=== PATIENT | female | born 1970 | race Caucasian/White ===

== ENCOUNTER → 2019-09-24 | Emergency (ER) | payer OTHER ==
[~2019-09-24] VITALS: Ht 149.9 cm; Wt 94.8 kg
[~2019-09-24] MED LIST: SODIUM CHLORIDE 0.9% 1000ML 1,000 ML IV STA
[2019-09-24 00:57] LABS: BASOPHILS # (AUTO) 0.1 (0.0-0.1); BASOPHILS % 0.6 % (0.0-1.0); EOSINOPHILS # (AUTO) 0.3 (0.0-0.4); LYMPHOCYTES # (AUTO) 2.9 (1.0-3.2); LYMPHOCYTES % 21.3 % (18.0-39.1); MEAN CORPUSCULAR HEMOGLOBIN 27.3 pg (28-32); MEAN CORPUSCULAR HGB CONC 31.8 g/dL (31-35); MEAN CORPUSCULAR VOLUME 85.9 fL (81-99); MONOCYTES % 7.4 % (4.4-11.3); NEUTROPHILS # (AUTO) 9.3 (2.1-6.9); NEUTROPHILS % 68.3 % (38.7-80.0); PLATELET COUNT 200 x10e3/uL (140-360); RED BLOOD COUNT 5.12 x10e6/uL (3.6-5.1); RED CELL DISTRIBUTION WIDTH 16.7 % (11.7-14.4)
--- NOTE | 2019-09-24 01:03 | Emergency Department Note ---
History of Present Illnes History of Present Illness Chief Complaint: General Medicine Complaints History of Present Illness This is a 48 year old female arrives to the ED with complaints of vaginal bleeding, patient states she was told she has perimenopause and gets Deppo shots. Patient also has a history of fibroids. Patient states she was told to come to the emergency department immediately if her bleeding lasts more than hour by her DIRECTOR [employer].. Historian: Patient Arrival Mode: HFD Onset (how long ago): hour(s) Severity: mild Onset quality: sudden Duration (how long): hour(s) Timing of current episode: constant Progression: worsening Chronicity: chronic Context: Denies recent illness, Denies recent surgery, Denies trauma/injury Relieving factors: none Exacerbating factors: none Past Medical/Family History Physician Review I have reviewed the patient's past medical and family history. Any updates have been documented here. Past Medical History Recent Fever: No Clinical Suspicion of Infectio: No New/Unexplained Change in Ment: No Social History Smoking Cessation: Never Smoker Counseling Performed: No Alcohol Use: Social Any Illegal Drug Use: No TB Exposure/Symptoms: No Physically hurt or threatened: No Family History Family history of heart diseas: Yes Other Any Pre-Existing Lines (PICC,: No Review of Systems Review of Systems Constitutional: Reports no symptoms EENTM: Reports no symptoms Cardiovascular: Reports no symptoms Respiratory: Reports no symptoms Gastrointestinal: Reports no symptoms Genitourinary: Reports as per HPI, Reports other (vaginal bleeding) Musculoskeletal: Reports no symptoms Integumentary: Reports no symptoms Neurological: Reports no symptoms Psychological: Reports no symptoms Endocrine: Reports no symptoms Hematological/Lymphatic: Reports no symptoms Review of other systems: All other systems negative Physical Exam Related Data Allergies: Coded Allergies: No Known Allergies (Unverified , 09/24/19) Vital signs reviewed: Yes Physical Exam CONSTITUTIONAL Constitutional: Present well-developed, Present well-nourished HENT HENT: Present normocephalic, Present atraumatic, Present oropharynx clear/moist, Present nose normal HENT L/R: Present left ext ear normal, Present right ext ear normal EYES Eyes: Reports PERRL, Reports conjunctivae normal NECK Neck: Present ROM normal PULMONARY Pulmonary: Present effort normal, Present breath sounds normal CARDIOVASCULAR Cardiovascular: Present regular rhythm, Present heart sounds normal, Present capillary refill normal, Present normal rate GASTROINTESTINAL Abdominal: Present soft, Present nontender, Present bowel sounds normal GENITOURINARY Genitourinary: Present other (vaginal bleeding) SKIN Skin: Present warm, Present dry MUSCULOSKELETAL Musculoskeletal: Present ROM normal NEUROLOGICAL Neurological: Present alert, Present oriented x 3, Present no gross motor or sensory deficits PSYCHOLOGICAL Psychological: Present mood/affect normal, Present judgement normal Results Laboratory Lab results reviewed: Yes Laboratory comments Laboratory Tests Test 09/24/19 00:50 White Blood Count 13.70 x10e3/uL (4.8-10.8) Red Blood Count 5.12 x10e6/uL (3.6-5.1) Hemoglobin 14.0 g/dL (12.0-16.0) Hematocrit 44.0 % (34.2-44.1) Mean Corpuscular Volume 85.9 fL (81-99) Mean Corpuscular Hemoglobin 27.3 pg (28-32) Mean Corpuscular Hemoglobin Concent 31.8 g/dL (31-35) Red Cell Distribution Width 16.7 % (11.7-14.4) Platelet Count 200 x10e3/uL (140-360) Neutrophils (%) (Auto) 68.3 % (38.7-80.0) Lymphocytes (%) (Auto) 21.3 % (18.0-39.1) Monocytes (%) (Auto) 7.4 % (4.4-11.3) Eosinophils (%) (Auto) 2.0 % (0.0-6.0) Basophils (%) (Auto) 0.6 % (0.0-1.0) Neutrophils # (Auto) 9.3 (2.1-6.9) Lymphocytes # (Auto) 2.9 (1.0-3.2) Monocytes # (Auto) 1.0 (0.2-0.8) Eosinophils # (Auto) 0.3 (0.0-0.4) Basophils # (Auto) 0.1 (0.0-0.1) Absolute Immature Granulocyte (auto 0.06 x10e3/uL (0-0.1) Sodium Level 141 mmol/L (136-145) Potassium Level 3.8 mmol/L (3.5-5.1) Chloride Level 109 mmol/L (98-107) Carbon Dioxide Level 21 mmol/L (22-29) Anion Gap 14.8 mmol/L (8-16) Blood Urea Nitrogen 17 mg/dL (7-26) Creatinine 1.05 mg/dL (0.57-1.11) Estimat Glomerular Filtration Rate 55 ML/MIN (60-) BUN/Creatinine Ratio 16 (6-25) Glucose Level 123 mg/dL (74-118) Calcium Level 9.7 mg/dL (8.4-10.2) Total Bilirubin 0.4 mg/dL (0.2-1.2) Aspartate Amino Transf (AST/SGOT) 20 IU/L (5-34) Alanine Aminotransferase (ALT/SGPT) 33 IU/L (0-55) Alkaline Phosphatase 86 IU/L (40-150) Total Protein 7.4 g/dL (6.5-8.1) Albumin 4.1 g/dL (3.5-5.0) Globulin 3.3 g/dL (2.3-3.5) Albumin/Globulin Ratio 1.2 (0.8-2.0) Assessment & Plan Medical Decision Making MDM 48-year-old female arrived to the ED with vaginal bleeding concerns of needing a transfusion. Patient states the last time this happened she required 3 units of blood. Patient states her DIRECT[employer] told her the next time she develops vaginal bleeding she is to return immediately to the emergency department. Patient gets depo shots for her perimenopause. Patient's hemoglobin is 14, she was slightly tachycardic on arrival. Spoke to patient at length about lab work, patient states she does not want an expensive EMS bill to go to another hospital. Patient understands she is welcome to return to emergency department at any time. Patient admits taking an EMS vehicle to come to the hospital because she lives so close but is concerned of how expensive it will be to travel farther. Patient offered the option of taking her private vehicle to go. Patient then stated she is too tired and would rather go home and follow-up with her [employer]. Assessment & Plan Final Impression: (1) DUB (dysfunctional uterine bleeding) Depart Disposition: HOME, SELF-CARE RENEJUSTUS FarnsworthDO Sep 24, 2019 01:03
--- NOTE | 2019-09-24 01:08 | NUR ---
Patient went to the restroom ambulatory with steady gait
[2019-09-24 01:15] LABS: ALBUMIN 4.1 g/dL (3.5-5.0); ALBUMIN/GLOBULIN RATIO 1.2 (0.8-2.0); ANION GAP 14.8 mmol/L (8-16); CALCIUM 9.7 mg/dL (8.4-10.2); CREATININE, SERUM 1.05 mg/dL (0.57-1.11); POTASSIUM 3.8 mmol/L (3.5-5.1)
--- NOTE | 2019-09-24 01:16 | NUR ---
Patient states that she pass a moderate amount of blood clots but the bleeding stops at this time. Will continue to monitor, pt denies dizziness or SOB.
--- NOTE | 2019-09-24 02:24 | NUR ---
Dr Streeter, Andressa Charge-RN & mariano RN at bedside explaining to pt regarding plan for transfer to other d/t no OB/Gyne service available in this facility tonight & was not the scope of practice for ED physician to order the medication needed for her current complaint. Patient expressed her frustration regarding transfer to another closest hospital for OB/GYNE consult, Pt states she rather go home & see her doctor tomorrow than spending out of pocket money & still ending up not getting hormone shots tonight that will fix her problem. Dr Streeter & charge-RN explained the risk & danger of going home of having an active bleeding but pt insisted & stated again that her bleeding stops after clots came out. Pt was given an option to be transferred out thru POV to cut the cost but still refuses at this time. Pt was advised by this RN to come back in ER if symptoms persist or gets worse upon arrival at home. Pt verbalizes understanding with discharge instructions. Pt vital signs are stable, no further complaint made prior to d/c to home. Pt ambulatory with steady gait.
[2019-09-24 02:29] VITALS: BP 160/73
== END | disposition home or self-care (01) ==
LOC: ER 01:00
DX: N93.8 Other specified abnormal uterine and vaginal bleeding (principal)
CPT/HCPCS: 36415; 80053; 85025; 86850; 86900; 99284; J7030